=== PATIENT | female | born 1935 | race Caucasian/White ===

== ENCOUNTER → 2017-05-02 | Outpatient (CLI) | payer OTHER ==
[~2017-05-02] VITALS: Ht 167.6 cm; Wt 73.0 kg
[~2017-05-02] MED LIST: ASPI81TA28 PO; ATOR10TA88 PO; CALC-354 PO; FLVHFA110 INH; MULT-610 PO; POLY335019 PO
[2017-05-02 14:14] VITALS: Ht 167.6 cm; Wt 73.0 kg
--- NOTE | 2017-05-02 14:49 | PAT Medication Instructions ---
Service Date May 02, 2017. Current Home Medication List Aspirin (Aspirin Ec), 81 MG PO QAM Atorvastatin (Lipitor), 10 MG PO Q2D Calcium Carbonate-Cholecalcife (Caltrate 600+D), 1 TAB PO QAM Fluticasone Propionate (Flovent Hfa), 2 PUFFS INH BID Multiple Vitamins W/ Minerals (Centrum Adults), 1 TAB PO QAM Polyethylene Glycol 3350 (Miralax), 17 GM PO QAM Medication Instructions For Your Scheduled Surgery - Hold the following medications the morning of surgery: Polyethylene Glycol 3350 (Miralax), 17 GM PO QAM Multiple Vitamins W/ Minerals (Centrum Adults), 1 TAB PO QAM Calcium Carbonate-Cholecalcife (Caltrate 600+D), 1 TAB PO QAM - Take the following medications the morning of surgery with a sip of water: Fluticasone Propionate (Flovent Hfa), 2 PUFFS INH BID Aspirin (Aspirin Ec), 81 MG PO QAM (okay to continue per surgeon) Atorvastatin (Lipitor), 10 MG PO Q2D - Take the following medications as scheduled the night before surgery: Fluticasone Propionate (Flovent Hfa), 2 PUFFS INH BID If you have any questions please call us at [phone] or [phone] or [phone]
[2017-05-02 16:18] LABS: ESTIMATED AVERAGE GLUCOSE 108 mg/dl; HA1C FLAG Normal (Normal)
[2017-05-02 16:19] LABS: URINE APPEARANCE CLEAR (CLEAR); URINE BILIRUBIN NEG (NEG); URINE COLOR YELLOW; URINE NITRITE NEG (NEG); URINE PH 7.5 (4.5-7.5); URINE SPECIFIC GRAVITY 1.017 (1.000-1.030); UROBILINOGEN NEG (NEG); ZZUR CULT IF INDIC CLEAN CATCH NO
[2017-05-02 16:22] LABS: MANUAL MICROSCOPIC REQUIRED? NO; REVIEW REQ? NO
[2017-05-02 16:24] LABS: PARTIAL THROMBOPLASTIN RATIO 1.1; PROTHROMBIN TIME (PATIENT) 10.6 SECONDS (9.0-12.0)
[2017-05-02 17:09] LABS: BUN/CREATININE RATIO 27.6 (10-20); CALCIUM 9.2 mg/dl (8.5-10.1); CREATININE 0.76 mg/dl (0.60-1.20); POTASSIUM 4.2 mmol/L (3.5-5.1)
[2017-05-02 17:16] LABS: BASO % 0.7 %; BASO ABS # 0.03 K/uL (0-0.2); COMPLETE YES; EOS % 2.1 %; IG% 0.2 %; LYMPH % 34.3 %; LYMPH ABS # 1.47 K/uL (1.2-3.4); MEAN CELL VOLUME 97.9 fL (80-100); MEAN CORPUSCULAR HEMOGLOBIN 32.5 pg (25-34); MEAN CORPUSCULAR HGB CONC 33.2 g/dl (32-36); MONO % 9.6 %; NEUT % 53.1 %; PLATELET COUNT 245 K/uL (130-400); PLT ESTIMATE NORMAL; RED BLOOD COUNT 3.88 M/uL (4.2-5.4); WHITE BLOOD COUNT 4.28 K/uL (4.8-10.8)
--- NOTE | 2017-07-18 11:54 | CODING QUERY MEDICAL NECESSITY ---
CQSUPPORTING DIAGNOSIS NEEDED A supporting diagnosis is required for the test/procedure performed on this patient in order for us to be reimbursed by the patient's insurance. Please provide a supporting diagnosis for the following test/procedure listed below next to the test name along with your signature. *If there is no additional diagnosis for this patient that would support the following test/procedure please document that below next to the test/procedure. Test(s)/Procedure(s) that require a supporting diagnosis: DOS 05/02/17 GLYCATED HEMOGLOBIN TEST Provider Signature: Date: Thank you Miesha Hunt [facility] Information [facility] Once completed, please kindly fax back to [phone] For questions please call [phone]
== END | disposition home or self-care (01) ==
LOC: C.LAB 08:00 → EDSTATUS 05-24 07:47
PROVIDERS: ATTEND Orthopaedic Surgery Sports Medicine
DX: Z01.810 Encounter for preprocedural cardiovascular examination (principal); Z01.812 Encounter for preprocedural laboratory examination